=== PATIENT | female | born 1930 | race Caucasian/White ===

== ENCOUNTER → 2017-02-16 | Outpatient (CLI) | payer MEDICARE, BC ==
[~2017-02-16] VITALS: Ht 172.7 cm; Wt 58.0 kg
[~2017-02-16] MED LIST: ASCO500 PO; CALC1TAB15 PO; FOLI1 PO; LEVO25TA4 PO; RIVA10 PO; TELM40 PO; VITA100T5 PO; [UNRECOGNIZED DRUG - OTHER] PO
[2017-02-16 13:06] VITALS: BP 120/57
== END | disposition home or self-care (01) ==
LOC: SRCNTR 12:43
PROVIDERS: ATTEND Internal Medicine Critical Care Medicine
DX: I10 Essential (primary) hypertension (principal); E03.9 Hypothyroidism, unspecified; D68.59 Other primary thrombophilia; I26.99 Other pulmonary embolism without acute cor pulmonale; K64.8 Other hemorrhoids
CPT/HCPCS: G0463

== ENCOUNTER → 2017-04-16 | Outpatient (CLI) | payer MEDICARE, BC ==
[~2017-04-16] VITALS: Ht 172.7 cm; Wt 57.5 kg
[2017-04-16 11:39] VITALS: BP 127/66
== END | disposition home or self-care (01) ==
LOC: SRCNTR 11:14
PROVIDERS: ATTEND Internal Medicine Critical Care Medicine
DX: I10 Essential (primary) hypertension (principal); E03.9 Hypothyroidism, unspecified; D68.59 Other primary thrombophilia; I26.99 Other pulmonary embolism without acute cor pulmonale; K64.8 Other hemorrhoids
CPT/HCPCS: G0463

== ENCOUNTER → 2017-10-22 | Outpatient (CLI) | payer MEDICARE, BC ==
[~2017-10-22] VITALS: Ht 172.7 cm; Wt 55.5 kg
[2017-10-22 11:48] VITALS: BP 141/64
== END | disposition home or self-care (01) ==
LOC: SRCNTR 11:43
PROVIDERS: ATTEND Internal Medicine Critical Care Medicine
DX: I10 Essential (primary) hypertension (principal); J44.9 Chronic obstructive pulmonary disease, unspecified; I26.99 Other pulmonary embolism without acute cor pulmonale; E03.9 Hypothyroidism, unspecified; J98.4 Other disorders of lung; D68.51 Activated protein C resistance; K64.8 Other hemorrhoids; Z79.01 Long term (current) use of anticoagulants; Z90.710 Acquired absence of both cervix and uterus
CPT/HCPCS: G0463

== ENCOUNTER → 2018-01-14 | Outpatient (CLI) | payer MEDICARE, BC ==
[~2018-01-14] VITALS: Ht 167.6 cm; Wt 68.0 kg
[2018-01-14 12:49] VITALS: BP 116/63
== END | disposition home or self-care (01) ==
LOC: SRCNTR 12:00
PROVIDERS: ATTEND Internal Medicine Critical Care Medicine
DX: I26.99 Other pulmonary embolism without acute cor pulmonale (principal); J44.9 Chronic obstructive pulmonary disease, unspecified; D68.51 Activated protein C resistance; E03.9 Hypothyroidism, unspecified; I10 Essential (primary) hypertension; K64.8 Other hemorrhoids; Z79.01 Long term (current) use of anticoagulants; Z90.710 Acquired absence of both cervix and uterus
CPT/HCPCS: G0463